=== PATIENT | female | born 1970 | race Caucasian/White ===

== ENCOUNTER → 2018-01-28 | Outpatient (CLI) | payer BC | LOC: MC.RAD 14:34 | DX: Z12.31 Encounter for screening mammogram for malignant neoplasm of breast (principal) ==

== ENCOUNTER 2020-11-30 08:52 | Day surgery (SDC) | payer BC ==
[~2020-11-30] VITALS: Ht 167.6 cm; Wt 103.8 kg
[2020-11-30 09:48] VITALS: BP 112/69; PULSE 97; TEMP 96.8
[2020-11-30] MEDS ORDERED: MEVACOR40 MG PO (10:06)
[2020-11-30] MEDS ORDERED: MICARDIS80 MG PO (10:06)
[2020-11-30] MEDS ORDERED: GLUCOPHAGE1000 MG PO ×2 (10:08→10:09)
[2020-11-30] MEDS ORDERED: SYNTHROID0.1 MG/TAB PO (10:08)
[2020-11-30] MEDS ORDERED: DYAZIDE 25 MG-31 CAP PO (10:09)
[2020-11-30] MEDS ORDERED: OZEMPIC0.25 MG/0. PO (10:10)
[2020-11-30] MEDS ORDERED: BASAGLAR K100 UNIT/1 SQ (10:11)
[2020-11-30] MEDS ORDERED: IRON TABLETS325 MG PO (10:12)
[2020-11-30] MEDS ORDERED: BIOTIN10000 MC1 PO (10:13)
[2020-11-30] MEDS ORDERED: MASON NATURAL2000 IU PO (10:13)
[2020-11-30 11:05] VITALS: BP 100/56; PULSE 84; TEMP 98.2
--- NOTE | 2020-11-30 11:05 | NUR ---
Pt returns to [facility] from [facility] and is awake and alert and ambulates to recliner without difficulty. Pt's at bedside. Pt given some water, doesn't want anything to eat but denies pain or nausea.
--- NOTE | 2020-11-30 11:05 | NUR ---
Pt returns to [facility] from [facility], alert and oriented and ambulates to recliner. VSS. Pt has a friend in the waiting room for a ride home. Call light in reach. Sprite and murufusin provided.
[2020-11-30 11:20] VITALS: BP 92/54; PULSE 86
--- NOTE | 2020-11-30 11:20 | NUR ---
Pt awake and alert and denies pain or nausea. Dr. Rivas talks with pt. VSS.
[2020-11-30 11:30] VITALS: BP 96/58; PULSE 83
--- NOTE | 2020-11-30 11:45 | NUR ---
Pt given discharge instructions and verbalizes understanding, IV discontinued. Pt to private car via wheelchair and left in care of her friend at 1150.
== END 2020-11-30 11:50 | disposition home or self-care (01) ==
LOC: SDCO 08:52
DX: Z12.11 Encounter for screening for malignant neoplasm of colon (principal); I10 Essential (primary) hypertension; E78.5 Hyperlipidemia, unspecified; E66.9 Obesity, unspecified; E11.9 Type 2 diabetes mellitus without complications; E03.9 Hypothyroidism, unspecified; G47.33 Obstructive sleep apnea (adult) (pediatric); Z20.822 Contact with and (suspected) exposure to COVID-19; Z79.84 Long term (current) use of oral hypoglycemic drugs; Z79.899 Other long term (current) drug therapy; Z87.891 Personal history of nicotine dependence; Z79.890 Hormone replacement therapy
CPT/HCPCS: J2704; J3010; J7120

== ENCOUNTER → 2021-09-24 | Outpatient (CLI) | payer BC ==
[~2021-09-24] MED LIST: BASAGLAR K100 UNIT/1 SQ; BIOTIN10000 MC1 PO; DYAZIDE 25 MG-31 CAP PO; GLUCOPHAGE1000 MG PO; IRON TABLETS325 MG PO; MASON NATURAL2000 IU PO; MEVACOR40 MG PO; MICARDIS80 MG PO; OZEMPIC0.25 MG/0. PO; SYNTHROID0.1 MG/TAB PO
== END ==
LOC: MC.RAD 14:13
DX: Z12.31 Encounter for screening mammogram for malignant neoplasm of breast (principal)